=== PATIENT | male | born 2000 | race Caucasian/White ===

== ENCOUNTER 2020-12-16 20:08 | Emergency (ER) | payer MEDICAID, SELFPAY ==
[2020-12-16 20:10] VITALS: BP 124/68; PULSE 91; RESP 16; TEMP 36.5; O2SAT 99; BMI 25.8
== END 2020-12-16 22:58 | disposition left against medical advice (07) ==
PROVIDERS: Emergency Provider Emergency Medicine
DX: H57.13 Ocular pain, bilateral (principal)
CPT/HCPCS: 99281; 99282